=== PATIENT | female | born 1965 | race Hispanic/Latino ===

== ENCOUNTER → 2018-10-14 | Outpatient (CLI) | payer BC | END | disposition home or self-care (01) | LOC: RAH 13:46 | PROVIDERS: ATTEND Family Medicine | DX: M51.36 Other intervertebral disc degeneration, lumbar region (principal) | CPT/HCPCS: 72148 ==

== ENCOUNTER → 2018-11-26 | Outpatient (CLI) | payer BC | END | disposition home or self-care (01) | LOC: RAH 08:43 | PROVIDERS: ATTEND Internal Medicine Gastroenterology | DX: K44.9 Diaphragmatic hernia without obstruction or gangrene (principal) | CPT/HCPCS: 74240 ==